=== PATIENT | female | born 1965 | race Caucasian/White ===

== ENCOUNTER 2019-07-20 14:46 | Outpatient (CLI) | payer MEDICARE, MEDICAID, SELFPAY ==
--- NOTE | 2019-07-20 15:15 | XR_ITS ---
WS: [id number] XR lumbar spine min 4V [id number] REASON FOR EXAM: CHRONIC LOW BACK PAIN WORSENING FINDINGS: Scoliotic curve convex to the left. Facet arthropathy L4-5, L5-S1. The disc spaces and vertebral bodies are normal. No spondylolysis or spondylolisthesis. XR/XR lumbar spine min 4V [id number] IMPRESSION: Facet arthropathy L4-5, L5-S1.
== END 2019-07-20 14:47 | disposition home or self-care (01) ==
LOC: RAD 14:55
PROVIDERS: Family Provider Family Medicine; PCP Family Medicine; Visit Provider Family Medicine
DX: M54.5 Low back pain (principal); G89.29 Other chronic pain
CPT/HCPCS: 72114

== ENCOUNTER 2020-02-22 12:44 | Outpatient (CLI) | payer MEDICARE, MEDICAID, SELFPAY ==
--- NOTE | 2020-02-22 12:58 | MM_ITS ---
WS: [id number] BILATERAL DIGITAL SCREENING MAMMOGRAPHY WITH CAD CLINICAL INFORMATION: SCREEN HISTORY: Screening mammogram. No current complaints. COMPARISON: January 06, 2019 TECHNIQUE: Bilateral CC and MLO views. FINDINGS: Scattered fibroglandular densities bilaterally. No suspicious focal mass, asymmetry, calcifications, or architectural distortion. No evidence of malignancy. A few lucent centered calcifications. Stable asymmetric breast tissue 12:00 position right breast MM/[place] [id number] IMPRESSION: BI-RADS: 2-Benign FOLLOW UP: 1 Year Follow-up Recommend return to annual screening mammography.
== END 2020-02-22 12:45 | disposition home or self-care (01) ==
LOC: RADSHAW 12:47
PROVIDERS: PCP Family Medicine; Visit Provider Family Medicine
DX: Z12.31 Encounter for screening mammogram for malignant neoplasm of breast (principal)
CPT/HCPCS: 77067

== ENCOUNTER 2021-04-10 13:07 | Outpatient (CLI) | payer MEDICARE, MEDICAID, SELFPAY ==
--- NOTE | 2021-04-10 13:15 | MM_ITS ---
WS: [id number] BILATERAL SCREENING DIGITAL MAMMOGRAM WITH CAD HISTORY: SCREENING COMPARISON: 02/22/2020, 01/06/2019 Bilateral CC and MLO views submitted. Computer aided detection analyzed. Breast composition: There are scattered areas of fibroglandular density. No suspicious masses, microc alcifications or architectural distortion. RIGHT breast asymmetry is stable. MM/[place] [id number] IMPRESSION: BI-RADS: 2-Benign FOLLOW UP: 1 Year Follow-up
== END 2021-04-10 13:08 | disposition home or self-care (01) ==
LOC: RADSHAW 13:07
PROVIDERS: PCP Family Medicine; Visit Provider Family Medicine
DX: Z12.31 Encounter for screening mammogram for malignant neoplasm of breast (principal)
CPT/HCPCS: 77067

== ENCOUNTER 2022-04-10 07:27 | Outpatient (CLI) | payer MEDICARE, MEDICAID, SELFPAY ==
--- NOTE | 2022-04-10 07:35 | NM_ITS ---
WS: [id number] NUCLEAR MEDICINE HIDA SCAN CLINICAL INFORMATION: RUQ PAIN TECHNIQUE: Following intravenous administration of 8.1 mCi of technetium 99m mebrofenin, images of th e abdomen were obtained over the course of 60 minutes. Next, gallbladder ejection fraction was determ ined by obtaining preprandial and one-hour postprandial images of the gallbladder following oral benito stion of Ensure. COMPARISON: Ultrasound March 01, 2022 FINDINGS: Normal hepatic uptake. Normal hepatic excretion. Gallbladder is visualized by 15 minutes. No evidence of acute cholecystitis. Normal small bowel and common bile duct activity. Gallbladder ejection fraction 80% within normal limits. No evidence of chronic cholecystitis. NM/NM hepatobiliary w phar* [id number] IMPRESSION: 1. No evidence of acute or chronic cholecystitis. 2. Gallbladder ejection fraction 81% within normal limits.
== END 2022-04-10 07:28 | disposition home or self-care (01) ==
LOC: RAD 07:31
PROVIDERS: PCP Nurse Practitioner Family; Visit Provider Nurse Practitioner Family
DX: R10.11 Right upper quadrant pain (principal)
CPT/HCPCS: 78227; A9537

== ENCOUNTER 2022-06-27 07:54 | Outpatient (CLI) | payer MEDICARE, MEDICAID, SELFPAY ==
--- NOTE | 2022-06-27 08:11 | MR_ITS ---
WS: [id number] MRI LUMBAR SPINE NONCONTRAST HISTORY: CHRONIC BILATERAL LOW BACK PAIN W/SCIATICA COMPARISON: Radiograph 07/20/2019. TECHNIQUE: Sagittal and axial multisequence imaging is submitted. 5 nonrib-bearing lumbar vertebral bodies were identified on the prior radiographs from 2019. This num bering pattern will be used also on today's examination indicating 5 lumbar vertebral bodies. Normal posterior lumbar vertebral alignment. Mild disc space narrowing and desiccation. Conus terminates normally at L1-2 disc level. T12-L1: Moderate central disc protrusion extends over a length of 9 mm. No axial imaging is submitted but this disc protrusion does contact and slightly deform the ventral cord. L1-L2: Mild annular disc bulging and facet arthritis. L2-L3: Mild annular disc bulging with moderate ligamentum flavum and facet arthritis. No high-grade s tenosis. L3-L4: Very some mild annular disc. Moderate ligamentum flavum and facet arthritis. Mild bilateral fo raminal narrowing. L4-L5: Moderate annular disc bulging is asymmetric to the LEFT. Moderate-sized central disc protrusio n. There is an additional larger protrusion extending into the LEFT foramen with contact on the exiti ng LEFT L4 nerve root. Marked ligamentum flavum hypertrophy and facet arthritis. Increase fluid in th e facet joints and widening. Moderate to severe central with bilateral subarticular recess and forami nal stenosis. The most significant contact on the LEFT L4 and L5 nerve roots by disc and osteophyte d isease. L5-S1: Very slight anterolisthesis of L5. Moderate facet joint arthritis. There is mild disc contact on the S1 nerve roots bilaterally. Slightly greater narrowing of the RIGHT subarticular recess. Moder ate subarticular recess stenosis and foraminal stenosis. Paravertebral soft tissues are negative. MR/MR lumbar spine wo con* [id number] IMPRESSION: 1. Moderate to severe central with bilateral subarticular recess and foraminal stenosis at L4-5. Central and LEFT foraminal disc protrusions. Most significan t disc osteophyte contact on the LEFT L4 and L5 nerve roots. 2. Moderate bilateral subarticular recess and foraminal stenosis at L5-S1. Sli ghtly greater encroachment upon the RIGHT subarticular recess. 3. Moderate central disc protrusion at T12-L1 contacts the ventral thecal sac.
== END 2022-06-27 07:55 | disposition home or self-care (01) ==
LOC: RAD 07:56
PROVIDERS: PCP Nurse Practitioner Family; Visit Provider Nurse Practitioner Family
DX: M54.40 Lumbago with sciatica, unspecified side (principal); M48.061 Spinal stenosis, lumbar region without neurogenic claudication; M48.07 Spinal stenosis, lumbosacral region; M51.25 Other intervertebral disc displacement, thoracolumbar region
CPT/HCPCS: 72148

== ENCOUNTER → 2022-07-31 14:08 | Outpatient (BNVA) | payer MEDICARE, MEDICAID, SELFPAY | PROVIDERS: PCP Nurse Practitioner Family; Referring Provider Nurse Practitioner Family; Visit Provider Orthopaedic Surgery | DX: M43.16 Spondylolisthesis, lumbar region (principal); M41.9 Scoliosis, unspecified | CPT/HCPCS: 72110; 99204 ==

== ENCOUNTER 2022-11-08 11:00 | Outpatient (CLI) | payer BC, MEDICAID, SELFPAY ==
--- NOTE | 2022-11-08 11:27 | MM_ITS ---
WS: [id number] BILATERAL SCREENING DIGITAL TOMOSYNTHESIS MAMMOGRAM WITH CAD HISTORY: SCREENING COMPARISON: 04/10/2021, 02/22/2020 Bilateral CC and MLO views with tomosynthesis and synthetic mammography submitted. Computer aided det ection analyzed. Breast composition: There are scattered areas of fibroglandular density. No suspicious masses, microc alcifications or architectural distortion. Bilateral benign calcifications. MM/[place] [id number] IMPRESSION: BI-RADS: 2-Benign FOLLOW UP: 1 Year Follow-up
== END 2022-11-08 11:01 | disposition home or self-care (01) ==
PROVIDERS: PCP Nurse Practitioner Family; Visit Provider Nurse Practitioner Family
DX: Z12.31 Encounter for screening mammogram for malignant neoplasm of breast (principal)
CPT/HCPCS: 77063; 77067